=== PATIENT | female | born 1990 | race Caucasian/White ===

== ENCOUNTER 2022-02-07 22:45 | Emergency (ER) | payer MEDICARE ==
[2022-02-07 23:53] LABS: RED BLOOD COUNT 4.21 M/UL (4.00-5.10); WHITE BLOOD COUNT 6.8 K/UL (4.5-11.0)
[2022-02-08 00:16] LABS: BUN/CREATININE RATIO 14 (0-10)
[2022-02-08] MEDS ORDERED: BACTRIM DS TAB1 EACH PO (02:16)
== END 2022-02-08 02:27 | disposition home or self-care (01) ==
LOC: ER1 22:45
PROVIDERS: Nurse Practitioner
DX: L02.214 Cutaneous abscess of groin (principal); F17.290 Nicotine dependence, other tobacco product, uncomplicated; Z88.8 Allergy status to other drugs, medicaments and biological substances
CPT/HCPCS: 10060; 80053; 85025; 87070; 87205; 99283